=== PATIENT | female | born 2000 | race Caucasian/White ===

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

== ENCOUNTER 2023-05-21 17:45 | Inpatient (IN) ==
[2023-05-21] MEDS ORDERED: Lidocaine 1% VIAL 10 MG/ML 30 ML VIAL INJ PRN (18:59)
[2023-05-21] MEDS: Dinoprostone 10 MG VAG.SUPP VAGINAL ONE (19:56)
[2023-05-21 20:47] LABS: Urine Benzodiazepine Screen None Detected (None Detect); Urine Cannabinoids Screen Presumptive Positive (None Detect); Urine Opiates Screen None Detected (None Detect)
[2023-05-21 21:16] LABS: ABS Lymphocytes 2.1 10^3/uL (1.0-4.8); ABS Monocytes 0.4 10^3/uL (0.0-0.9); ABS Neutrophils 5.7 10^3/uL (1.5-7.6); ABS Nucleated RBC 0.01 10^3/ul; Eosinophil % 0.5 %; Hematocrit 35.1 % (35-45); Hemoglobin 12.2 g/dL (11.5-14.3); Lymphocyte % 25.5 %; Mean Corpuscular Hemoglobin 28.6 pg (27-33); Mean Corpuscular Hgb Conc 34.7 g/dL (31-36); Mean Corpuscular Volume 82.3 fL (80-97); Mean Platelet Volume 7.5 fL (7.5-11.2); Nucleated Red Blood Cells % 0.1 %/100WBC (0.0-0.8); Platelet Count 258 10^3/uL (150-450); Red Blood Count 4.27 10^6/uL (3.63-4.92); Red Cell Distribution Width 14.4 % (12-17); White Blood Count 8.3 10^3/uL (3.8-11.8)
[2023-05-22] MEDS: Prochlorperazine 5 mg/ml 2 ml VIAL (10 mg) IV PRN (02:23)
[2023-05-22] MEDS: Morphine 10 MG/ML VIAL (1 ml) IV ONE (02:23)
[2023-05-22] MEDS: Lactated Ringers 1000 ml BAG 1,000 ML IV ONE ×2 (03:41→08:58)
[2023-05-22] MEDS: fentaNYL 100 mcg/2 ml 50 MCG/ML VIAL ONE (07:37)
[2023-05-22] MEDS: Lidocaine 1.5% EPI 1:200,000 30 ML SDV ONE (07:46)
[2023-05-22] MEDS: Buffered Lidocaine 1% SYRIN 1 ml INTRADERM ONE (07:46)
[2023-05-22] MEDS: Lactated Ringers 1000 ml BAG 1,000 ML IV SCH ×2 (07:52→18:59)
[2023-05-22] MEDS: OBEPIDURAL (200 ML) 200 ML EPIDURAL ONE (08:00)
[2023-05-22] MEDS ORDERED: Phenylephrine 40 mcg/mL 10mL (400mcg) SYRINGE IV PUSH PRN ×2 (08:13)
[2023-05-22] MEDS ORDERED: Lactated Ringers 1000 ml BAG 500 ML IV PRN ×2 (08:13)
[2023-05-22] MEDS ORDERED: Sodium Citrate/Citric Acid LIQ 15 ML UDC PO PRN (08:13)
[2023-05-22] MEDS ORDERED: Famotidine IV 10 MG/ML 2 ml VIAL (20 mg) IV PRN (08:13)
[2023-05-22] MEDS: OBEPIDURAL (200 ML) 200 ML EPIDURAL SCH (08:58)
[2023-05-22 09:20] LABS: Urine Appearance Clear; Urine Bilirubin Negative (Negative); Urine Blood Trace (Negative); Urine Color Light-Yellow; Urine Glucose Negative (Negative); Urine Ketones Negative (Negative); Urine Nitrite Negative (Negative); Urine Protein Trace (Negative); Urine Specific Gravity 1.022 (1.002-1.030); Urine Urobilinogen Negative (Negative)
[2023-05-22] MEDS: Oxytocin in LR 20,000 MILLI.UNIT/1,000 ML BAG IV SCH (09:38)
[2023-05-22] MEDS ORDERED: Glycerin ADULT 2.4 gm SUPP PR PRN (15:13)
[2023-05-22] MEDS ORDERED: Oxytocin in LR 20,000 MILLI.UNIT/1,000 ML BAG IV SCH (15:15)
[2023-05-22] MEDS ORDERED: Lactated Ringers 1000 ml BAG 1,000 ML IV SCH (16:00)
[2023-05-22] MEDS: Witch Hazel PAD JAR TOPICAL PRN (16:03)
[2023-05-22] MEDS: Dibucaine 1% OINT 28.35 GM TUBE PR PRN (16:03)
[2023-05-23 07:01] LABS: ABS Eosinophils 0.1 10^3/uL (0.0-0.5); ABS Lymphocytes 2.4 10^3/uL (1.0-4.8); ABS Monocytes 0.4 10^3/uL (0.0-0.9); ABS Neutrophils 4.9 10^3/uL (1.5-7.6); Eosinophil % 0.8 %; Hematocrit 32.8 % (35-45); Hemoglobin 11.3 g/dL (11.5-14.3); Lymphocyte % 30.7 %; Mean Corpuscular Hemoglobin 28.4 pg (27-33); Mean Corpuscular Hgb Conc 34.5 g/dL (31-36); Mean Corpuscular Volume 82.3 fL (80-97); Mean Platelet Volume 7.4 fL (7.5-11.2); Platelet Count 210 10^3/uL (150-450); Red Blood Count 3.99 10^6/uL (3.63-4.92); Red Cell Distribution Width 13.8 % (12-17); White Blood Count 7.8 10^3/uL (3.8-11.8)
[2023-05-23 12:00] VITALS: BP 141/54
== END 2023-05-23 18:15 | disposition home or self-care (01) | DRG 560 ==
LOC: MCHOBOUT 17:45 → MCHOB 20:25
PROVIDERS: ADMIT Obstetrics & Gynecology; ATTEND Advanced Practice Midwife

== ENCOUNTER 2023-08-08 17:39 | Inpatient (IN) ==
[2023-08-08 19:17] LABS: ABS Eosinophils 0.4 10^3/uL (0.0-0.5); ABS Lymphocytes 2.9 10^3/uL (1.0-4.8); ABS Monocytes 0.5 10^3/uL (0.0-0.9); ABS Neutrophils 7.7 10^3/uL (1.5-7.6); Eosinophil % 3.2 %; Hematocrit 37.5 % (35-45); Hemoglobin 12.3 g/dL (11.5-14.3); Lymphocyte % 25.2 %; Mean Corpuscular Hemoglobin 25.9 pg (27-33); Mean Corpuscular Hgb Conc 32.9 g/dL (31-36); Mean Corpuscular Volume 78.9 fL (80-97); Mean Platelet Volume 6.6 fL (7.5-11.2); Platelet Count 396 10^3/uL (150-450); Red Blood Count 4.75 10^6/uL (3.63-4.92); Red Cell Distribution Width 13.9 % (12-17); White Blood Count 11.5 10^3/uL (3.8-11.8)
[2023-08-08 19:43] LABS: ALT 12 U/L (7-52); AST 9 U/L (13-39); Albumin/Globulin Ratio 1.2 (1-3); Alkaline Phosphatase 88 U/L (35-149); Anion Gap 12 mmol/L (2-16); Blood Urea Nitrogen 22 mg/dL (6-24); C Reactive Protein 73.33 mg/L (<8.01); CO2 Carbon Dioxide 25 mmol/L (22-32); Calcium 9.3 mg/dL (8.6-10.3); Chloride 103 mmol/L (101-111); Creatinine, Serum 0.79 mg/dL (0.51-0.95); Globulin 3.3 g/dL (2-4); Glucose 113 mg/dL (70-100); Potassium 4.1 mmol/L (3.5-5.0); Sodium 140 mmol/L (135-145); Total Bilirubin 0.2 mg/dL (0.2-1.0); Total Protein 7.3 g/dL (6.4-8.9); eGFR CKD-EPI 107.7 (>60)
[2023-08-08] MEDS ORDERED: Senna TAB 8.6 mg TAB PO PRN (22:41)
[2023-08-08] MEDS ORDERED: Polyethylene Glycol 3350 17 GM PACKET PO PRN (22:41)
[2023-08-08] MEDS: Enoxaparin 40 MG/0.4 ML SYR SUBCUT SCH (23:24)
[2023-08-09 08:25] LABS: Erythrocyte Sed Rate 43 mm/Hr (0-19)
[2023-08-09] MEDS: Morphine 2 MG/ML SYRINGE IV ONE (09:13)
[2023-08-09 09:34] LABS: Rheumatoid Factor < 10 IU/mL (<15)
[2023-08-09 09:50] LABS: TSH Ultra Thyroid Stim Horm 1.66 mcIU/mL (0.34-5.60)
[2023-08-09 17:01] LABS: Ferritin 53.3 ng/mL (11-307)
[2023-08-09] MEDS: Diclofenac Sod EC 25 mg TAB PO SCH (20:59)
[2023-08-10 06:47] LABS: ABS Basophils 0.1 10^3/uL (0.0-0.1); ABS Eosinophils 0.2 10^3/uL (0.0-0.5); ABS Lymphocytes 2.5 10^3/uL (1.0-4.8); ABS Monocytes 0.4 10^3/uL (0.0-0.9); ABS Nucleated RBC 0.01 10^3/ul; Eosinophil % 3.1 %; Hemoglobin 11.5 g/dL (11.5-14.3); Lymphocyte % 35.1 %; Mean Corpuscular Hemoglobin 25.8 pg (27-33); Mean Corpuscular Hgb Conc 32.8 g/dL (31-36); Mean Corpuscular Volume 78.7 fL (80-97); Mean Platelet Volume 6.6 fL (7.5-11.2); Nucleated Red Blood Cells % 0.1 %/100WBC (0.0-0.8); Platelet Count 316 10^3/uL (150-450); Red Blood Count 4.45 10^6/uL (3.63-4.92); Red Cell Distribution Width 13.8 % (12-17); White Blood Count 7.2 10^3/uL (3.8-11.8)
[2023-08-10 07:26] LABS: Calcium 8.9 mg/dL (8.6-10.3); Creatinine, Serum 0.67 mg/dL (0.51-0.95); Magnesium 1.6 mg/dL (1.9-2.7); Potassium 4.3 mmol/L (3.5-5.0); eGFR CKD-EPI 125.9 (>60)
[2023-08-10] MEDS: Iohexol 350 (CONTRAST) 500 ML MDV IV ONE (15:04)
[2023-08-10] MEDS: Magnesium Sulf 4 GM/100 ML IV 4,000 MG/100 ML BAG IVPB ONE (16:48)
[2023-08-10] MEDS: Ondansetron 4 mg VIAL 2 MG/ML 2 ml VIAL IV PRN (21:57)
[2023-08-11 05:49] LABS: Hematocrit 35.2 % (35-45); Hemoglobin 11.9 g/dL (11.5-14.3); Mean Corpuscular Hemoglobin 26.2 pg (27-33); Mean Corpuscular Hgb Conc 33.8 g/dL (31-36); Mean Corpuscular Volume 77.5 fL (80-97); Mean Platelet Volume 6.6 fL (7.5-11.2); Platelet Count 339 10^3/uL (150-450); Red Blood Count 4.54 10^6/uL (3.63-4.92); Red Cell Distribution Width 13.8 % (12-17); White Blood Count 7.5 10^3/uL (3.8-11.8)
[2023-08-11 06:22] LABS: Calcium 8.9 mg/dL (8.6-10.3); Creatinine, Serum 0.73 mg/dL (0.51-0.95); Magnesium 2.1 mg/dL (1.9-2.7); Potassium 4.6 mmol/L (3.5-5.0); eGFR CKD-EPI 118.4 (>60)
[2023-08-11 14:05] VITALS: BP 112/69
[2023-08-11] MEDS: Lidocaine PATCH 5% PATCH TRANSDERM SCH (14:26)
[2023-08-12 15:33] LABS: HLA B27 Positive
[2023-08-13 12:08] LABS: Cyclic Citrullinated Peptide <15.6 U
[2023-08-13 23:49] LABS: Cyclic Citrullinated Pept IgG <15.6 U
[2023-08-14 11:37] LABS: JO-1 Antibody <0.2 U; RNP Antibody, IgG <0.2 U; SS-A/Ro Antibody <0.2 U; SS-B/La Antibody <0.2 U; Scl 70 Ab, IgG, S <0.2 U; Sm (Smith) IgG Antibody <0.2 U
[2023-08-14 22:05] LABS: Anaplasma phagocytophilum Negative (Negative); B. miyamotoi PCR, B Negative (Negative); Babesia divergens/MO-1 Negative (Negative); Babesia ducani Negative (Negative); Ehrlichia chaffeensis Negative (Negative); Ehrlichia ewingii/canis Negative (Negative); Ehrlichia muris eauclairensis Negative (Negative)
== END 2023-08-11 18:50 | disposition home or self-care (01) | DRG 346 ==
LOC: ED 17:39 → EDHOLD 17:39 → SUATTDRO 22:41 → SSU 08-09 00:29
PROVIDERS: ADMIT Student in an Organized Health Care Education/Training Program; ATTEND Internal Medicine